=== PATIENT | male | born 1950 | race Caucasian/White ===

== ENCOUNTER → 2018-07-12 | Outpatient (CLI) | payer MEDICARE ==
[~2018-07-12] MED LIST: ANDROGEL1.25 GM; Armour Thyroid15 MG PO; B Complex1 EAC2; CHOL10002; Calcium 500 MG1 EACH; DULO30 PO; Daily Multiple1 EACH PO; ETODOLAC PO; HYDACE5 PO; OXYACE5T PO; RANI150 PO; Vitamin C1000 M1; Vitamin E400 UNI4; [UNRECOGNIZED DRUG - REMARK]; [UNRECOGNIZED DRUG - REMARK]
== END ==
LOC: PLD 12:48 → LAB SHORT 12:48
DX: L60.2 Onychogryphosis (principal); B35.1 Tinea unguium
CPT/HCPCS: 88305; 88312

== ENCOUNTER 2019-05-10 07:13 | Emergency (ER) | payer MEDICARE ==
[~2019-05-10] VITALS: Ht 172.7 cm; Wt 65.8 kg
[~2019-05-10 07:13] MED LIST changes: +ALEN70 PO; +MULTI VITAMIN1 EACH PO; +TERB250 PO; +VITAMIN C500 MG PO; +VITAMIN D31000 UNIT PO
[2019-05-10] MEDS ORDERED: LEVO-T25 MCG PO (07:43)
[2019-05-10] MEDS ORDERED: Prednisone10 MG PO (07:44)
[2019-05-10] MEDS ORDERED: Inderal40 MG PO (07:44)
[2019-05-10] MEDS ORDERED: Ultram50 MG PO (07:51)
== END 2019-05-10 08:01 | disposition home or self-care (01) ==
LOC: ER 07:13
DX: M79.671 Pain in right foot (principal); E03.9 Hypothyroidism, unspecified; F32.9 Major depressive disorder, single episode, unspecified; Z88.0 Allergy status to penicillin; Z79.899 Other long term (current) drug therapy; Z79.52 Long term (current) use of systemic steroids
CPT/HCPCS: 99283

== ENCOUNTER 2020-08-19 12:40 | Day surgery (SDC) | payer MEDICARE ==
[~2020-08-19] VITALS: Ht 172.7 cm; Wt 65.4 kg
[~2020-08-19 12:40] MED LIST changes: +Inderal40 MG PO; +LEVO-T25 MCG PO; +LEVOTHYROXINE50 MC1 PO; +Prednisone10 MG PO; +REVATIO20 MG PO; +Ultram50 MG PO
--- NOTE | 2020-08-19 14:29 | NUR ---
08/19/20 1429 Letty Sarabia IBUPROFEN 600MG PO GIVEN PER DR. HOWELL ORDERS
== END 2020-08-19 14:44 | disposition home or self-care (01) ==
LOC: ORSCSDS 12:40
PROVIDERS: Podiatrist
PROC: 01BG0ZZ Excision of Tibial Nerve, Open Approach (ICD-10-PCS; principal; 2020-08-19 13:45)
DX: G57.62 Lesion of plantar nerve, left lower limb (principal); I10 Essential (primary) hypertension; E03.9 Hypothyroidism, unspecified; Z79.899 Other long term (current) drug therapy
CPT/HCPCS: 88304; A9270; J2250; J2370; J2704; J3010; J7120

== ENCOUNTER 2025-02-09 23:42 | Emergency (ER) | payer MEDICARE ==
[~2025-02-09] VITALS: Ht 172.7 cm; Wt 61.2 kg
[2025-02-09 23:49] VITALS: BP 143/100
[2025-02-10 00:01] LABS: BASOPHILS ABSOLUTE AUTO 0.07 K/mm3 (0.00-0.23); BASOPHILS PERCENT AUTO 1 % (0-2); EOSINOPHILS ABSOLUTE AUTO 0.09 K/mm3 (0.00-0.68); EOSINOPHILS PERCENT AUTO 1 % (0-6); Hematocrit 43.7 % (37.0-53.0); Hemoglobin 14.8 g/dL (13.5-17.5); IMMATURE GRAN ABSOLUTE AUTO 0.03 K/mm3 (0.00-0.10); IMMATURE GRAN PERCENT AUTO 0 % (0-1); LYMPHOCYTES ABSOLUTE AUTO 2.03 K/mm3 (0.84-5.20); LYMPHOCYTES PERCENT AUTO 29 % (21-46); MONOCYTES ABSOLUTE AUTO 1.00 K/mm3 (0.16-1.47); MONOCYTES PERCENT AUTO 15 % (4-13); Mean Corpuscular HGB Conc 33.9 g/dL (31.5-36.5); Mean Corpuscular Volume 87 fL (80-100); NEUTROPHILS ABSOLUTE AUTO 3.68 K/mm3 (1.96-9.15); NEUTROPHILS PERCENT AUTO 53 % (41-73); NRBC ABSOLUTE 0.00 K/mm3 (0.00-0.02); NRBC Auto 0.0 /100 WBC (0.0-0.2); Platelet Count 284 K/mm3 (150-400); RDW Coefficient Variation 12.3 % (11.7-14.2); RDW Standard Deviation 39.0 fL (35.1-46.3)
[2025-02-10 00:18] LABS: Alanine Aminotransfer (ALT/SGP 18.0 U/L (12-78); Albumin, Blood 3.1 g/dL (3.4-5.0); Albumin/Globulin Ratio 0.8 (0.8-1.8); Anion Gap 10.0 mmol/L (3-11); Aspartate Aminotrans (AST/SGOT 14.0 U/L (12-37); Bilirubin, Total 1.0 mg/dL (0.1-1.0); Blood Urea Nitrogen 15.0 mg/dL (8-24); CO2, Blood 25.0 mmol/L (21-32); Calcium, Blood 9.2 mg/dL (8.5-10.1); Chloride, Blood 107.0 mmol/L (98-108); Creatinine, Blood 0.84 mg/dL (0.60-1.20); Globulin, Blood 3.7 g/dL (2.2-4.0); Glucose, Blood 106.0 mg/dL (70-99); Potassium, Blood 3.7 mmol/L (3.5-5.5); Sodium, Blood 138.0 mmol/L (136-145); Total Protein, Blood 6.8 g/dL (6.4-8.2)
== END 2025-02-10 04:27 | disposition home or self-care (01) ==
LOC: ER 23:42
PROVIDERS: Student in an Organized Health Care Education/Training Program
DX: R00.2 Palpitations (principal); E03.9 Hypothyroidism, unspecified; Z88.0 Allergy status to penicillin; Z79.890 Hormone replacement therapy; Z79.899 Other long term (current) drug therapy
CPT/HCPCS: 71046; 80053; 83690; 84484; 85025; 93005; 93010; 99285-25